=== PATIENT | female | born 1980 | race Caucasian/White ===

== ENCOUNTER 2016-09-25 10:33 | Day surgery (SDC) | payer OTHER ==
[~2016-09-25] VITALS: Ht 171.4 cm; Wt 64.0 kg
[2016-09-25 11:13] VITALS: BP 116/78
[2016-09-25] MEDS ORDERED: OXYTOCIN 10 UNITS/ML, 1ML ONE (11:30)
[2016-09-25] MEDS ORDERED: SILVER NITRATE STICK TP ONE (11:30)
[2016-09-25] MEDS ORDERED: MISOPROSTOL 200 MCG TABLET ONE (11:30)
[2016-09-25] MEDS ORDERED: EPINEPHRINE 1 MG/ML, 1ML ONE (11:31)
[2016-09-25] MEDS ORDERED: BUPIVACAINE/PF 0.25% ONE (11:31)
[2016-09-25] MEDS ORDERED: METHYLERGONOVINE 0.2 MG/ML IM ONE (11:31)
[2016-09-25] MEDS ORDERED: ONDANSETRON 2MG/ML, 2ML ONE (12:09)
[2016-09-25] MEDS ORDERED: DEXAMETHASONE 4 MG/ML, 1ML ONE (12:09)
[2016-09-25] MEDS ORDERED: METOCLOPRAMIDE 5 MG/ML, 2ML ONE (12:09)
[2016-09-25] MEDS ORDERED: LIDOCAINE 1%, 20ML ONE (12:09)
[2016-09-25] MEDS ORDERED: CEFAZOLIN 1,000 MG ONE (12:09)
[2016-09-25] MEDS ORDERED: PROPOFOL 10 MG/ML, 20ML ONE (12:09)
[2016-09-25] MEDS ORDERED: KETOROLAC 30 MG/1 ML ONE (12:09)
[2016-09-25] MEDS ORDERED: FENTANYL PF 100 MCG/2ML ONE (12:57)
[2016-09-25] MEDS ORDERED: OXYcodone 5 MG/5 ML ORAL.SOL UDC ONE (12:58)
[2016-09-25] MEDS ORDERED: MEPERIDINE/PF 25MG/0.5ML IVPush PRN (13:00)
[2016-09-25] MEDS ORDERED: PROMETHAZINE 25 MG SUPP PR ONE (13:00)
[2016-09-25] MEDS ORDERED: hydrALAzine 20 MG/ML, 1ML IV PRN (13:00)
[2016-09-25] MEDS ORDERED: OXYcodone 5 MG/5 ML ORAL.SOL UDC PO PRN (13:00)
[2016-09-25] MEDS ORDERED: ONDANSETRON 2MG/ML, 2ML IVPush PRN (13:00)
[2016-09-25] MEDS ORDERED: PROMETHAZINE 25 MG/ML, 1ML IV PRN (13:00)
[2016-09-25] MEDS ORDERED: PLEASE ENTER ALLERGIES MC SCH ×2 (13:00)
[2016-09-25] MEDS ORDERED: OXYcodone/APAP 5/325MG TABLET PO PRN (13:00)
[2016-09-25] MEDS ORDERED: HYDROmorphone 1 MG/ML, 1ML IV PRN (13:00)
[2016-09-25] MEDS ORDERED: FENTANYL PF 100 MCG/2ML IV PRN (13:00)
[2016-09-25] MEDS ORDERED: LABETALOL 5MG/ML, 20ML IV PRN (13:00)
[2016-09-25] MEDS ORDERED: MIDAZOLAM 1 MG/ML, 2ML IV PRN (13:00)
[2016-09-25] MEDS ORDERED: LACTATED RINGERS 1,000 ML IV SCH (14:00)
[2016-09-25] MEDS ORDERED: IBUPROFEN 600 MG TABLET PO SCH (16:00)
== END 2016-09-25 14:55 | disposition home or self-care (01) ==
LOC: OR 10:33 → 4NOR 10:34 → OR 14:55
PROVIDERS: ATTEND Obstetrics & Gynecology Maternal & Fetal Medicine
DX: O35.8XX0 Maternal care for other (suspected) fetal abnormality and damage, not applicable or unspecified (principal); O35.0XX0 Maternal care for (suspected) central nervous system malformation in fetus, not applicable or unspecified; Z3A.13 13 weeks gestation of pregnancy; J45.909 Unspecified asthma, uncomplicated; I10 Essential (primary) hypertension
CPT/HCPCS: 59840; 88305; J0690; J1100; J1885; J2210; J2405; J2590; J2704; J2765; J3010; J3490; J0171